=== PATIENT | female | born 1985 | race Caucasian/White ===

== ENCOUNTER 2019-05-11 11:27 | Emergency (ER) | payer OTHER ==
[2019-05-11 12:26] VITALS: BP 128/77
--- NOTE | 2019-05-11 13:14 | UC ---
Upper Extremity HPI - HPI Summary HPI Summary: 33-year-old female comes in with a chief complaint of left arm pain. Patient slipped and fell on the parking lot while at work this morning landed on her left elbow. She has pain primarily in the left elbow all the way of the left humerus and left shoulder. Pain radiates down into the left hand also. Patient reports she initially had some swelling in the left hand and that's decreased since she put ice on the elbow. Also reporting a burning tingling pain into the left hand on a radial nerve distribution into the thumb second and third fingers. At this time she feels like does fingers are weaker than normal. Pain is worse with any kind of movement or palpation. Patient did land on her left side but she is not concerned about broken bones anywhere other than her left arm. - History of Current Complaint Chief Complaint: UCUpperExtremity Stated Complaint: LEFT ELBOW INJURY Time Seen by Provider: 05/11/19 13:09 Hx Last Menstrual Period: 03/17/19 Pain Intensity: 10 - Allergies/Home Medications Allergies/Adverse Reactions: Allergies Allergy/AdvReac Type Severity Reaction Status Date / Time ibuprofen Allergy See Comment Verified 05/11/19 12:20 Home Medications: Home Medications Naproxen Sodium [Aleve] 2 tab PO ONCE 05/11/19 [History Confirmed 05/11/19] PMH/Surg Hx/FS Hx/Imm Hx Previously Healthy: Yes - Surgical History Surgical History: Yes Surgery Procedure, Year, and Place: tubal ligation and reversal - Family History Known Family History: Positive: Non-Contributory - Social History Alcohol Use: Occasionally Substance Use Type: Marijuana Substance Use Comment - Amount & Last Used: occasionally Smoking Status (MU): Heavy Every Day Tobacco Smoker Amount Used/How Often: 1/2 ppd Review of Systems All Other Systems Reviewed And Are Negative: Yes Constitutional: Positive: Negative Skin: Positive: Negative Eyes: Positive: Negative ENT: Positive: Negative Respiratory: Positive: Negative Cardiovascular: Positive: Negative Gastrointestinal: Positive: Negative Motor: Positive: Other - see hpi Neurovascular: Positive: Other - see hpi Musculoskeletal: Positive: Other: - see hpi Neurological: Positive: Other - see hpi Psychological: Positive: Negative Is Patient Immunocompromised?: No Physical Exam Triage Information Reviewed: Yes Appearance: Well-Appearing, Well-Nourished, Pain Distress - mild with rom and exam Vital Signs: Initial Vital Signs Temp 98.1 F 05/11/19 12:20 Pulse 85 05/11/19 12:20 Resp 16 05/11/19 12:20 BP 128/77 05/11/19 12:20 Pulse Ox 98 05/11/19 12:20 Vital Signs Reviewed: Yes Eye Exam: Normal Eyes: Positive: Conjunctiva Clear Neck: Positive: Supple, Other: - Mild tenderness to palpation in the left posterior aspect of the neck. Respiratory: Positive: Lungs clear, Normal breath sounds, No respiratory distress, Other: - The left scapula is tender to palpation. Cardiovascular: Positive: RRR Musculoskeletal: Positive: Other: - Left elbow is tender to palp patient primarily in the proximal ulna. Patient declined range of motion of the elbow secondary to pain. She has normal range of motion of the fingers normal capillary refill. She reports decreased sensation in the thumb second and third fingers in comparison to the fifth finger. 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 Wrist flexion is normal. Wrist extension is decreased by pain but also. Patient reports decreased strength with wrist extension. Normal radial pulse. Neurological: Positive: Alert Psychological: Positive: Age Appropriate Behavior Skin Exam: Normal Upper Extremity Course/Dx - Course Course Of Treatment: Drain Layer: Mellissa Deng S ([id number]) [place]: KANNAN (KANNAN) Report Date: 05/11/2019 13:33:00 Report Status: Final Start of Report Content Patient Name: SUJATHA MEZA Medical Record#: [id number] Ordering Physician: Tony BAL Acct.#: [id number] : 1985 Age : 33 Sex: F Location: [facility] Exam Date: 05/11/19 1257 ADM Status : REG ER Order Information: HUMERUS LEFT Accession Number: [id number] CPT: 70098 Indication: Left humerus injury. 2 views of left forearm demonstrates no fracture. No other bone or joint abnormality is identified. IMPRESSION: No fracture of the left arm is noted. <Electronically signed by Mellissa Deng MD in OV> 05/11/19 1330 Dictated By: Mellissa Deng MD Dictated Date/Time: 05/11/19 132 Transcribed Date/ Time: 05/11/191328 Copy to: CC:No Primary Care Phys,NOPCP ; Tony BAL ; Mio Gleason MD Imaging - [facility] Imaging - [facility] [address] [address] ph [phone]) ph ([phone]) ([phone]) ==== End of Report Content Drain Layer: Mellissa Deng S, ([id number]) [place]: KANNAN (MONIKAANCE) Report Date: 05/11/2019 13:33:00 Report Status: Final Start of Report Content Patient Name: SUJATHA MEZA Medical Record#: [id number] Ordering Physician: Tony BAL Acct.#: [id number] : 1985 Age : 33 Sex: F Location: [facility] Exam Date: 05/11/19 1257 ADM Status : REG ER Order Information: ELBOW LEFT 3+VWS Accession Number: [id number] CPT: 33334 Indication: Left elbow injury. 4 views left elbow demonstrates no fracture. No joint effusion is noted. No other bone or joint abnormality is identified. IMPRESSION: No fracture of the left elbow is noted. <Electronically signed by Mellissa Deng MD in OV> 05/11/19 1329 Dictated By: Mellissa Deng MD Dictated Date/Time: 1324 Transcribed Date/Time: 05/11/19 132 Copy to: CC:No Primary Care Phys,NOPCP ; Tony BAL; Mio Gleason MD Imaging - [facility] [address] [address] ph ([phone]) ph ([phone]) ph ([phone]) End of Report Content I discussed the x-rays with the patient. No fracture seen. Patient does have symptoms of a left radial nerve palsy. Plan at this time is ice and using a sling with range of motion as tolerated. Patient has peptic ulcer history and therefore cannot take nonsteroidal anti-inflammatories. Follow-up will be with either orthopedic sports medicine or occupational medicine as this was a job- related injury. I discussed the radial nerve symptoms with the patient and let her know that she should expect that they should improve however if they're not improving or worsening she needs to get reevaluated again preferably by orthopedics as soon as possible. Patient is tender to palpation scapula. At this time we did not do an x-ray however I let the patient know with her follow-up if scapula is not improving or any other injuries not improving further evaluation with imaging may be appropriate. - Differential Dx/Diagnosis Provider Diagnosis: Contusion of elbow, left, Neuropathy of left radial nerve, Contusion of scapula , left Discharge ED - Sign-Out/Discharge Documenting (check all that apply): Patient Departure All imaging exams completed and their final reports reviewed: Yes - Discharge Plan Condition: Stable Disposition: HOME Prescriptions: HYDROcodone/ACETAMIN 5-325 MG* [Zarephath 5-325 TAB*] 1 tab PO Q4H PRN #20 tab MDD 6 PRN Reason: Pain - Moderate Patient Education Materials: Elbow Sprain (ED), Radial Nerve Palsy (ED) Forms: *Work Release Referrals: Jerad Deshpande MD [Medical Doctor] - Juan Manuel Drummond MD [Medical Doctor] - [facility] [Provider Group] Additional Instructions: FOLLOW UP WITH ORTHOPEDICS, DR DESHPANDE, OR SPORTS MEDICINE OR DR DRUMMOND, OCCUPATIONAL MEDICINE. GET REEVALUATED SOONER IF NOT IMPROVING OR WORSE; PAIN, WEAKNESS/NUMBNESS THAT DOES NOT IMPROVE, DECREASED BLOOD CIRCULATION, YOU FEEL ILL OR ANY QUESTIONS OR CONCERNS. - Billing Disposition and Condition Condition: STABLE Disposition: Home
[2019-05-11] MEDS ORDERED: HYDROcodone/ACETAMIN 5-325 MG* 1 TAB PO ONE (13:54)
== END 2019-05-11 14:09 | disposition home or self-care (01) ==
LOC: UCCORT 11:27
DX: S50.02XA Contusion of left elbow, initial encounter (principal); S40.012A Contusion of left shoulder, initial encounter; G62.9 Polyneuropathy, unspecified; K27.9 Peptic ulcer, site unspecified, unspecified as acute or chronic, without hemorrhage or perforation; F17.210 Nicotine dependence, cigarettes, uncomplicated; Z88.6 Allergy status to analgesic agent; W01.0XXA Fall on same level from slipping, tripping and stumbling without subsequent striking against object, initial encounter; Y92.481 Parking lot as the place of occurrence of the external cause
CPT/HCPCS: 99203; G0463

== ENCOUNTER 2019-07-03 09:44 | Emergency (ER) | payer OTHER ==
[2019-07-03 10:12] VITALS: BP 120/80
--- NOTE | 2019-07-03 10:56 | UC ---
Neck Pain HPI - HPI Summary HPI Summary: neck pain x 7 weeks, pain is 10 out of 10 , worse with movements , lifting injury at work on 05/11/19 . s/p fall on her left arm . her arm has been better but the pain is going into her neck and spine numbness and weakness of left arm , cannot lift anything using her left hand , c/o headaches , no n/v , no dizziness - History of Current Complaint Chief Complaint: UCUpperExtremity Stated Complaint: BACK/NECK PAIN (WC) Time Seen by Provider: 07/03/19 10:11 Hx Obtained From: Patient Hx Last Menstrual Period: 03/17/19 ?: No Onset/Duration Of Injury/Symptoms: Weeks - 7 weeks Mechanism Of Injury: Blunt Trauma Timing: Constant Onset/Duration: Sudden Onset, Lasting Weeks - 7 Severity: Severe Pain Intensity: 10 Location: Discrete At: - neck and left arm Character: Aching, Throbbing Associated Signs & Symptoms: Positive: Weakness, Headache, Paresthesia - left arm. Negative: Swelling, Redness, Bruising, Fever, Nuchal Rigity - Allergies/Home Medications Allergies/Adverse Reactions: Allergies Allergy/AdvReac Type Severity Reaction Status Date / Time ibuprofen Allergy See Comment Verified 07/03/19 10:12 Home Medications: Home Medications Ibuprofen 1,200 mg PO BEDTIME 07/03/19 [History Confirmed 07/03/19] PMH/Surg Hx/FS Hx/Imm Hx Respiratory History: Asthma - Surgical History Surgical History: Yes Surgery Procedure, Year, and Place: tubal ligation and reversal - Family History Known Family History: Positive: Non-Contributory - Social History Alcohol Use: Rare Substance Use Type: Marijuana Substance Use Comment - Amount & Last Used: monthly Smoking Status (MU): Heavy Every Day Tobacco Smoker Amount Used/How Often: 1/2 ppd Review of Systems All Other Systems Reviewed And Are Negative: Yes Is Patient Immunocompromised?: No Physical Exam Triage Information Reviewed: Yes Appearance: Well-Appearing, Well-Nourished, Pain Distress Vital Signs: Initial Vital Signs Temp 97.4 F 07/03/19 10:06 Pulse 87 07/03/19 10:06 Resp 18 07/03/19 10:06 BP 120/80 07/03/19 10:06 Pulse Ox 100 07/03/19 10:06 Vital Signs Reviewed: Yes Eye Exam: Normal Eyes: Positive: Conjunctiva Clear ENT: Positive: Normal ENT inspection, Hearing grossly normal, Pharynx normal Neck: Positive: Tenderness @ - cervical spine, Other: - pain with ROM, limited ROM on flexion / extension / rotation Respiratory: Positive: Chest non-tender, Lungs clear, Normal breath sounds Cardiovascular: Positive: RRR, No Murmur, Pulses Normal Abdominal Exam: Normal Abdomen Description: Positive: Nontender Musculoskeletal: Positive: Other: - left arm : pain with ROM, no swelling, diffuse tenderness, limited Strength Skin Exam: Normal Diagnostics - Radiology No standard instances Radiology Interpretation Completed By: Radiologist Summary of Radiographic Findings: xray report cervical spine : IMPRESSION: Degenerative disc disease at C5-C6. No fracture is noted. Neck Pain Course/Dx - Differential Dx/Diagnosis Provider Diagnosis: Cervical pain (neck), Thoracic outlet syndrome Discharge ED - Sign-Out/Discharge Documenting (check all that apply): Patient Departure All imaging exams completed and their final reports reviewed: Yes - Discharge Plan Condition: Stable Disposition: HOME Prescriptions: Cyclobenzaprine TAB* [Flexeril 10 MG TAB*] 10 mg PO BID PRN #20 tab PRN Reason: Pain - Moderate predniSONE [Prednisone 20 MG TAB] 20 mg PO BID #10 tablet Patient Education Materials: Thoracic Outlet Syndrome (ED), Cervical Radiculopathy (ED) Forms: *Work Release Referrals: Jerad Deshpande MD [Medical Doctor] - As Soon As Possible No Primary Care Phys,NOPCP [Primary Care Provider] - - Billing Disposition and Condition Condition: STABLE Disposition: Home
== END 2019-07-03 11:35 | disposition home or self-care (01) ==
LOC: UCCORT 09:44
DX: G54.0 Brachial plexus disorders (principal); M54.2 Cervicalgia; M50.322 Other cervical disc degeneration at C5-C6 level; R51 Headache; R53.1 Weakness; M79.602 Pain in left arm; R20.2 Paresthesia of skin; J45.909 Unspecified asthma, uncomplicated; F17.210 Nicotine dependence, cigarettes, uncomplicated; Z88.8 Allergy status to other drugs, medicaments and biological substances; X50.9XXA Other and unspecified overexertion or strenuous movements or postures, initial encounter; Y92.9 Unspecified place or not applicable; Y99.0 Civilian activity done for income or pay
CPT/HCPCS: 72040; 99212; G0463

== ENCOUNTER 2019-07-10 09:52 | Emergency (ER) | payer OTHER ==
--- NOTE | 2019-07-10 10:01 | UC ---
Upper Extremity HPI - HPI Summary HPI Summary: 3-year-old female presenting with for complaint of left elbow, left shoulder, and neck pain since 05/11/2019. Patient states she has had increasing pain ever since. States she was here on 07/03/2019 and given Flexeril and prednisone. States this provided little relief. Notes decreased rom of shoulder and neck. Notes she drops thing from her left hand as well. States he had x-rays done of the elbow, shoulder, neck. States she is only been diagnosed with arthritis in her neck. Patient states she called orthopedics but they will not see her for neck or spine pain. Patient states she is on a waiting list for neurosurgery but they cannot get her in until September. Patient states she also needs a note excusing her from work until she gets further evaluation. - History of Current Complaint Stated Complaint: L ELBOW NECK/SPINE INJ WC INJ Hx Obtained From: Patient Hx Last Menstrual Period: 03/17/19 - Allergies/Home Medications Allergies/Adverse Reactions: Allergies Allergy/AdvReac Type Severity Reaction Status Date / Time ibuprofen Allergy See Comment Verified 07/10/19 10:19 latex Allergy Rash Verified 07/10/19 10:19 PMH/Surg Hx/FS Hx/Imm Hx - Surgical History Surgical History: Yes Surgery Procedure, Year, and Place: tubal ligation and reversal - Family History Known Family History: Positive: Non-Contributory - Social History Alcohol Use: Rare Substance Use Type: Marijuana Substance Use Comment - Amount & Last Used: monthly Smoking Status (MU): Heavy Every Day Tobacco Smoker Amount Used/How Often: 1/2 ppd Review of Systems All Other Systems Reviewed And Are Negative: No Constitutional: Positive: Negative Skin: Positive: Negative Respiratory: Positive: Negative Cardiovascular: Positive: Negative Gastrointestinal: Positive: Nausea - "from flexeril" Musculoskeletal: Positive: Arthralgia - L elbow, L shoulder, neck pain, Decreased ROM - neck and L shoulder. Negative: Edema Neurological: Positive: Paresthesia - down L arm. Negative: Numbness Physical Exam - Summary Physical Exam Summary: Vital Signs Reviewed: Yes A+Ox3, no pain distress Eyes: Conjunctiva Clear ENT: Hearing grossly normal neck: supple Respiratory: Positive: No respiratory distress, No accessory muscle use Cardiovascular: skin color reflect adequate perfusion Musculoskeletal Exam: WYATT x 4 without difficulty, +TTP of cspine and L trapezius. Limited ROM of shoulder extension and flexion. limited ROM of extension and flexion of neck. 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 cap refill < 2sec, strong radial pulses, sensation grossly intact Neurological: Positive: Alert, ambulatory without difficulty Psychological: Positive: age appropriate behavior Skin: Positive: no rash, no ecchymosis Vital Signs: Vital Signs (72 hours) 07/10/19 10:16 Temperature 98.7 F Pulse Rate 88 Respiratory 15 Rate Blood Pressure 131/89 (mmHg) O2 Sat by Pulse 99 Oximetry Upper Extremity Course/Dx - Course Course Of Treatment: Discussed with patient to continue with symptomatic treatment and continue to call neurosurgery to check for earlier appt that can be made. Patient unable to see pcp, ortho, or dr. james since this is WC. I provided patient with flexeril refill and zofran for nausea that she states is caused by flexeril. Instructed to continue to stretch and heat. I also provided patient with work release until she receives further evaluation and clearance. Patient voiced understanding and agreed with treatment plan. - Differential Dx/Diagnosis Provider Diagnosis: Cervical pain, Cervical radiculopathy Discharge ED - Sign-Out/Discharge Documenting (check all that apply): Patient Departure All imaging exams completed and their final reports reviewed: No Studies - Discharge Plan Condition: Stable Disposition: HOME Prescriptions: Cyclobenzaprine TAB* [Flexeril 10 MG TAB*] 10 mg PO BID PRN #20 tab PRN Reason: Spasms - Muscle Ondansetron TAB* [Zofran 4 MG Tab*] 4 mg PO Q6H PRN #20 tab PRN Reason: Nausea Patient Education Materials: Cervical Radiculopathy (ED) Forms: *Work Release Additional Instructions: You may continue to take the flexeril for pain and zofran for nausea. Continue to rest, stretch, and apply heat for pain relief. You may also take tylenol as directed. Continue to check with neurosurgery for soonest appointment for evaluation of pain. - Billing Disposition and Condition Condition: STABLE Disposition: Home
[2019-07-10 10:21] VITALS: BP 131/89
== END 2019-07-10 10:55 | disposition home or self-care (01) ==
LOC: UCCORT 09:52
DX: M54.12 Radiculopathy, cervical region (principal); M54.2 Cervicalgia; M25.522 Pain in left elbow; M25.512 Pain in left shoulder; F17.210 Nicotine dependence, cigarettes, uncomplicated; Z88.6 Allergy status to analgesic agent; Z91.040 Latex allergy status
CPT/HCPCS: 99212; G0463